=== PATIENT | female | born 1995 ===

== ENCOUNTER 2024-12-16 16:37 | Emergency (ER) | payer OTHER ==
[~2024-12-16] VITALS: Ht 162.6 cm; Wt 63.5 kg
[2024-12-16] MEDS ORDERED: TRAMADOL HCL 50 MG TABLET PO ONE (17:30)
[2024-12-16 18:04] LABS: BASO % 0.5 % (0.1-1.2); EOS # 0.12 (0.04-0.54); HEMATOCRIT 34.5 % (34.1-44.9); HEMOGLOBIN 11.8 g/dL (11.2-15.7); LYMPH % 28.1 % (19.3-53.1); MEAN CORPUSCULAR HEMOGLOBIN 31.2 pg (25.6-32.2); MONO # 0.44 (0.24-0.82); MONO % 7.3 % (4.7-12.5); NEUT # 3.74 (1.56-6.13); NEUT % 61.8 % (34.0-71.1); PLATELET COUNT 231 K/uL (163-369); RED BLOOD COUNT 3.78 M/uL (3.93-5.22); RED CELL DISTRIBUTION WIDTH 12.6 % (11.6-14.4)
[2024-12-16 18:38] LABS: ALBUMIN 3.9 gm/dL (3.4-5.0); ALKALINE PHOSPHATASE 62 U/L (50-136); ALT/SGPT 19 U/L (12-78); ANION GAP 10 (10.0-20.0); AST/SGOT 23 U/L (15-37); BILIRUBIN TOTAL 0.28 mg/dL (0.3-1.2); BLOOD UREA NITROGEN 12 mg/dL (7-18); BUN CREA RATIO 21 (7.0-25.0); CALCIUM 8.6 mg/dL (8.5-10.1); CARBON DIOXIDE 28 mEq/L (21-32); CHLORIDE 109 mmol/L (98-107); CREATININE SERUM 0.58 mg/dL (0.55-1.02); GFR 121.25; GLOBULINA 3.3 G/DL (2.4-3.5); GLUCOSE FASTING 95 mg/dL (65-100); OSMOLALITY SERUM 283 MOSM/KG (275-295); POTASSIUM 5.18 mEq/L (3.5-5.1); SODIUM 142 mmol/L (136-145); TOTAL PROTEIN 7.2 gm/dL (6.4-8.2)
[2024-12-16 18:41] LABS: HCG QUANTITATIVE < 1 mUI/mL (1-3)
[2024-12-16 20:32] LABS: URINE APPEARANCE Cloudy; URINE BILIRRUBIN Negative (NEGATIVE); URINE BLOOD Negative; URINE COLOR Yellow; URINE GLUCOSE Negative (NEGATIVE); URINE KETONE Trace (NEGATIVE); URINE LEUKOCYTE Large; URINE NITRATE Negative; URINE PROTEIN Negative (NEGATIVE)
[2024-12-16 20:38] LABS: URINE EPITHELIAL CELLS 48.6 uL (0.0-38.8); URINE RBC 18.1 uL (0.0-20.8); URINE WBC 135.2 uL (0.0-23.2)
[2024-12-16 21:11] LABS: COCAINE NEGATIVE (NEGATIVE); METHADONE NEGATIVE (NEGATIVE); OPIATES NEGATIVE (NEGATIVE); THC ( Cannabinoids) POSITIVE (NEGATIVE)
== END 2024-12-16 22:04 | disposition home or self-care (01) ==
LOC: EDBD 16:37 → ER 16:37
PROVIDERS: General Practice
DX: R53.1 Weakness (principal); R07.89 Other chest pain; R51.9 Headache, unspecified